=== PATIENT | female | born 1925 | race Caucasian/White ===

== ENCOUNTER 2017-07-02 21:29 | Inpatient (IN) | payer MEDICARE, OTHER ==
[~2017-07-02] VITALS: Ht 154.9 cm; Wt 96.2 kg
[~2017-07-02 21:29] MED LIST: ACET-53 PO; ACET1TAB12 PO; ALPR0.255 PO; APIX2.5T PO; CARV6.252 PO; ESOM40CA PO; FURO40TA5 PO; IBUP-1955 PO; LOSA50TA21 PO; MAGN400T30 PO; METO-357 PO; POTA10CA43 PO; SENN-92 PO; SIMV40TA5 PO; TRAM50TA2 PO
--- NOTE | 2017-07-02 21:30 | NUR ---
PT BIB RA WITH A C/O LEFT SIDED CP SINCE THIS AM. PT FELT NAUSEATED AND VOMITTED HEEL GOUGER. 20G IV LAC HEEL GOUGER. PT REC'D 1 SPRAY NITRO, 162MG ASA, AND 4MG ZOFRAN IVP IN THE FIELD. PT IS AA&O. PT IS MARSHALLESE SPEAKING AND C/O GLASER. EMS STATED THAT THE PT C/O GLASER IN THE FIELD. PT IS ON THE MONITOR AND CONTINUOUS PULSE OX.
[2017-07-02 21:44] LABS: BASOPHILS % (AUTO) 0.3 % (0.0-2.0); EOSINOPHILS % (AUTO) 0.1 % (0.0-6.0); HEMATOCRIT 40 % (33-45); HEMOGLOBIN 13.8 g/dL (11.5-14.8); LYMPHOCYTES # (AUTO) 0.7 /CMM (0.8-4.8); LYMPHOCYTES % (AUTO) 12.4 % (20.0-44.0); MEAN CORPUSCULAR HEMOGLOBIN 30 PG (26.0-33.0); MEAN CORPUSCULAR HGB CONC 34 g/dl (31.0-36.0); MEAN CORPUSCULAR VOLUME 87 fL (82-100); MONOCYTES # (AUTO) 0.5 /CMM (0.1-1.30); MONOCYTES % (AUTO) 8.6 % (2.0-12.0); NEUTROPHILS # (AUTO) 4.4 /CMM (1.8-8.9); NEUTROPHILS % (AUTO) 78.6 % (43.0-81.0); PLATELET COUNT (AUTO) 252 /CMM (150-450); RDW COEFFICIENT OF VARIATION 13.2 (11.5-15.0); RED BLOOD CELL COUNT(AUTO) 4.61 MIL/uL (4.0-5.2); WHITE BLOOD COUNT (AUTO) 5.6 K/uL (4.3-11.0)
--- NOTE | 2017-07-02 22:02 | NUR ---
PT LEFT FOR CT VIA RNEY
[2017-07-02 22:03] LABS: ALANINE AMINOTRANSFERASE 20 U/L (12-78); ALBUMIN 3.2 g/dL (3.4-5.0); ALKALINE PHOSPHATASE 74 U/L (46-116); ASPARTATE AMINOTRANSFERASE 24 U/L (15-37); BILIRUBIN,DIRECT 0.1 mg/dL (0.0-0.2); BILIRUBIN,TOTAL 0.6 mg/dL (0.2-1.0); CALCIUM, SERUM 8.7 mg/dL (8.5-10.1); CARBON DIOXIDE 25 mmol/L (21-32); CHLORIDE 97 mmol/L (98-107); CREATININE 1.3 mg/dL (0.6-1.3); GLUCOSE 134 mg/dL (74-106); POTASSIUM 4.9 mmol/L (3.5-5.1); SODIUM SERUM 131 mmol/L (136-145); TOTAL PROTEIN, SERUM 8.3 g/dL (6.4-8.2); UREA NITROGEN, BLOOD 17 mg/dL (7-18)
[2017-07-02 22:05] LABS: TROPONIN I < 0.017 ng/mL (0.00-0.056)
[2017-07-02 22:06] LABS: INR 1.09 (0.87-1.13); PROTHROMBIN TIME 11.3 SECS (9.5-12.7)
[2017-07-02] MEDS ORDERED: DEXAMETHASONE SOD PHOSPHATE 10 MG/ML VIAL IV ONE (22:30)
[2017-07-02] MEDS ORDERED: ONDANSETRON HCL/PF 4 MG/2 ML VIAL ONE (22:30)
[2017-07-02] MEDS ORDERED: diphenhydrAMINE HCL 50 MG/ML VIAL IV ONE (22:30)
[2017-07-02] MEDS ORDERED: ONDANSETRON HCL/PF 4 MG/2 ML VIAL IV ONE (22:30)
[2017-07-02] MEDS ORDERED: diphenhydrAMINE HCL 50 MG/ML VIAL ONE (22:32)
[2017-07-02] MEDS ORDERED: DEXAMETHASONE SOD PHOSPHATE 10 MG/ML VIAL ONE (22:32)
--- NOTE | 2017-07-02 23:03 | NUR ---
PT PLACED ON 3L O2 VIA NC. PT WAS SATURATING AT 89% ON RA. PT IS NOW SATURATING AT 92%. DR. FIGUEROA NOTIFIED.
--- NOTE | 2017-07-02 23:09 | NUR ---
[facility] PAGED, YARED LOPEZ GLOVE MACHINE OPERATOR
[2017-07-02 23:11] LABS: APPEARANCE,URINE SL CLOUDY (CLEAR); BILIRUBIN,URINE NEGATIVE (NEGATIVE); BLOOD, URINE TRACE-INTA Ery/uL (NEGATIVE); COLOR,URINE YELLOW (YELLOW); KETONES,URINE NEGATIVE (NEGATIVE); LEUKOCYTE ESTERASE ,URINE NEGATIVE (NEGATIVE); NITRITE, URINE POSITIVE (NEGATIVE); PROTEIN,URINE TRACE mg/dl (NEGATIVE); UGLUCOSE NEGATIVE (NEGATIVE); UROBILINOGEN,URINE 0.2 EU/dL (0.2)
--- NOTE | 2017-07-02 23:15 | NUR ---
PT'S FAMILY MEMBERS LEFT. PT'S SON, HERRERA, WOULD LIKE TO BE CALLED WITH UPDATES.
[2017-07-02 23:18] LABS: BACTERIA,URINE 4+ /HPF (None Seen); SQUAMOUS EPITHELIAL CELL,UR Few /HPF (None Seen)
--- NOTE | 2017-07-02 23:23 | NUR ---
PT ASSIGNED TO 324-1
[2017-07-02] MEDS ORDERED: CEFTRIAXONE 1GM BAG (ER ONLY) 50 ML IV ONE (23:26)
--- NOTE | 2017-07-02 23:29 | NUR ---
DR. LOPEZ, IS AT THE BEDSIDE WITH BRITATNY SILVERMAN FROM ICU FOR GERMAN TRANSLATION.
[2017-07-02] MEDS ORDERED: CEFTRIAXONE 1GM BAG (ER ONLY) 1 GM/50 ML PIGGYBACK IV ONE (23:30)
[2017-07-03] VITALS (8 sets, daily range): BP systolic 117–156; BP diastolic 54–85
[2017-07-03] MEDS ORDERED: FUROSEMIDE 20 MG/2 ML VIAL IV ONE ×2
--- NOTE | 2017-07-03 00:10 | NUR ---
RN OPEN NOTES RECEIVED PATIENT FROM ER VIA IGGY. A/O X3. NO SIGNS OF DISTRESS OR DISCOMFORT. BREATHING EVEN AND UNLABORED. ON 3LPM O2 VIA NC. IV ACCESS IN LAC WITH ROCEPHIN CURRENTLY INFUSING PATENT AND INTACT, NO SIGNS OF REDNESS OR INFILTRATION. ORIENTED PATIENT TO UNIT AND ROOM. ALL NEEDS ANTICIPATED. BED IN LOW LOCKED POSITION WITH SIDE RAILS X2. CALL LIGHT WITHIN REACH. WILL CONTINUE TO MONITOR.
[2017-07-03] MEDS ORDERED: HYDROCODONE/APAP 5/325MG 1 EACH TABLET PO PRN ×2 (00:15)
[2017-07-03] MEDS ORDERED: ONDANSETRON HCL/PF 4 MG/2 ML VIAL IVP PRN ×2 (00:15)
[2017-07-03] MEDS ORDERED: ACETAMINOPHEN 325 MG TABLET PO PRN ×2 (00:15)
[2017-07-03] MEDS ORDERED: Z GUARD REMEDY 2 OZ OINT TP PRN ×2 (00:15)
[2017-07-03] MEDS ORDERED: MAGNESIUM HYDROXIDE 30 ML UDC PO PRN ×2 (00:15)
[2017-07-03] MEDS ORDERED: MAG HYDROX/AL HYDROX/SIMETH 30 ML UDC PO PRN ×2 (00:15)
[2017-07-03] MEDS ORDERED: FUROSEMIDE 20 MG/2 ML VIAL ONE (01:20)
[2017-07-03] MEDS ORDERED: CEFTRIAXONE 1 G in IV D5W 50 ML IV SCH ×2 (01:30→23:00)
[2017-07-03] MEDS ORDERED: TRAMADOL HCL 50 MG TABLET PO PRN (01:30)
[2017-07-03 06:32] LABS: BASOPHILS % (AUTO) 0.3 % (0.0-2.0); HEMATOCRIT 39 % (33-45); HEMOGLOBIN 13.1 g/dL (11.5-14.8); LYMPHOCYTES # (AUTO) 0.5 /CMM (0.8-4.8); LYMPHOCYTES % (AUTO) 15.1 % (20.0-44.0); MEAN CORPUSCULAR HEMOGLOBIN 30 PG (26.0-33.0); MEAN CORPUSCULAR HGB CONC 34 g/dl (31.0-36.0); MEAN CORPUSCULAR VOLUME 89 fL (82-100); MONOCYTES # (AUTO) 0.1 /CMM (0.1-1.30); MONOCYTES % (AUTO) 1.8 % (2.0-12.0); NEUTROPHILS # (AUTO) 2.7 /CMM (1.8-8.9); NEUTROPHILS % (AUTO) 82.8 % (43.0-81.0); PLATELET COUNT (AUTO) 223 /CMM (150-450); RDW COEFFICIENT OF VARIATION 14.1 (11.5-15.0); WHITE BLOOD COUNT (AUTO) 3.2 K/uL (4.3-11.0)
[2017-07-03 06:39] LABS: CALCIUM, SERUM 8.7 mg/dL (8.5-10.1); CARBON DIOXIDE 24 mmol/L (21-32); CHLORIDE 98 mmol/L (98-107); CREATININE 1.3 mg/dL (0.6-1.3); GLUCOSE 172 mg/dL (74-106); MAGNESIUM 1.7 mg/dL (1.8-2.4); PHOSPHORUS 4.7 mg/dL (2.5-4.9); POTASSIUM 4.8 mmol/L (3.5-5.1); SODIUM SERUM 134 mmol/L (136-145); UREA NITROGEN, BLOOD 18 mg/dL (7-18)
[2017-07-03 06:47] LABS: TROPONIN I < 0.017 ng/mL (0.00-0.056)
--- NOTE | 2017-07-03 07:45 | NUR ---
RN CLOSING NOTES PATIENT AWAKE IN BED. A/O X3. NO SIGNS OF DISTRESS OR DISCOMFORT. BREATHING EVEN AND UNLABORED. ON 3LPM O2 VIA NC. IV ACCESS IN LAC, PATENT AND INTACT, NO SIGNS OF REDNESS OR INFILTRATION. ALL NEEDS MET. NO SIGNIFICANT CHANGES THROUGH THE NIGHT. BED IN LOW LOCKED POSITION WITH SIDE RAILS X2. CALL LIGHT WITHIN REACH. ENDORSED TO AM SHIFT FOR JESSICA.
--- NOTE | 2017-07-03 07:52 | NUR ---
CONTROL PANEL ASSEMBLER NOTES RECEIVED PATIENT IN BED, AWAKE. A/O X3, [place] SPEAKING, UNDERSTAND SOME [place]EL[place]. ON TELE MONITOR AFIB HR 61, ON OXYGEN AT 3L VIA NC, NO SOB. IVC IN LEFT AC G20 PATENT AND INTACT, FLUSHES WELL. APPEARS COMFORTABLE IN BED, CALL LIGHT WITHIN REACH. WILL CONT TO MONITOR.
[2017-07-03 08:29] LABS: CHOLESTEROL 199 mg/dL (<200); HDL CHOLESTEROL 55 mg/dL (40-60); LDL 138 mg/dL (0-99); THYROID STIMULATING HORMONE 0.563 uIU/mL (0.358-3.74); TRIGLYCERIDES 42 mg/dL (30-150)
[2017-07-03] MEDS ORDERED: REGADENOSON 0.4 MG/5 ML DISP.SYRIN IVP ONE (08:30)
[2017-07-03] MEDS: POTASSIUM CHLORIDE 10 MEQ TABLET.SA PO SCH (08:52)
[2017-07-03] MEDS: SENNOSIDES/DOCUSATE SODIUM 1 TAB TABLET PO SCH ×2 (08:52→17:05)
[2017-07-03] MEDS: PANTOPRAZOLE 40 MG TABLET.DR PO SCH (08:52)
[2017-07-03] MEDS: MAGNESIUM OXIDE 400 MG TABLET PO SCH (08:55)
[2017-07-03] MEDS: CARVEDILOL 6.25 MG TABLET PO SCH ×2 (08:55→17:06)
[2017-07-03] MEDS: FUROSEMIDE 40 MG TABLET PO SCH (08:56)
[2017-07-03] MEDS: LOSARTAN POTASSIUM 50 MG TABLET PO SCH (08:56)
[2017-07-03] MEDS: METOPROLOL SUCCINATE 50 MG TAB.SR.24H PO SCH (08:56)
[2017-07-03] MEDS ORDERED: APIXABAN 2.5 MG TABLET PO ONE (09:00)
[2017-07-03] MEDS: IBUPROFEN 600 MG TABLET PO SCH ×3 (09:00→17:05)
[2017-07-03] MEDS: ALPRAZOLAM 0.25 MG TABLET PO PRN ×2 (09:14→22:51)
--- NOTE | 2017-07-03 09:16 | NUR ---
PATIENT IN BED, APPEARS ANXIOUS. NO SOB, MAINTAIN HOB ELEVATED, ON SUPPLEMENTAL OXYGEN AT 2L VIA NC. GIVEN XANAX 0.25 PO PRN, WILL REASSESS.
--- NOTE | 2017-07-03 10:30 | NUR ---
PATIENT IN BED, AWAKE. APPEARS CALM AND RELAX, XANAX PO PRN EFFECTIVE.
--- NOTE | 2017-07-03 10:56 | NUR ---
LOW MAGNESIUM 1.7 PATIENT IS ON MAG-OXIDE 400MG PO DAILY. INFORMED ANIMAL PATHOLOGIST/AG, WITH NO NEW ORDERS AT THIS TIME.
--- NOTE | 2017-07-03 13:22 | NUR ---
PATIENT IS BACK FROM [place] MYOCARDIAL STRESS PROCEDURE. MAD COMFORTABLE IN BED, LUNCH IS SERVED.
[2017-07-03] MEDS: SIMVASTATIN 40 MG TABLET PO SCH (17:04)
[2017-07-03] MEDS: APIXABAN 5 MG TABLET PO SCH (17:06)
--- NOTE | 2017-07-03 18:45 | NUR ---
MS RN CLOSING NOTES PATIENT IN BED, A/OX3. BREATHING EVEN AND NON LABORED, ON SUPPLEMENTAL OXYGEN AT 3L VIA NC. ASSISTED TO THE BED SIDE COMMODE, HAD BOWEL MOVEMENT TODAY X2, KEPT CLEAN AND DRY. ELEVATE LEGS WITH PILLOWS. PLACE CALL LIGHT WITHIN REACH. CONT HOSPITALIZATION AND LABS IN AM PER [facility]/KIMBERLI. WILL ENDORSE TO APPRENTICE EMBALMER RN FOR JESSICA.
--- NOTE | 2017-07-04 05:29 | NUR ---
RN NOTES No significant change in condition.No c/o pain or discomfort, no c/o chest pain. Patient slept comfortably during shift. HOB kept elevated. O2 inhalation via nasal cannula kept in place. Due meds given as ordered, all needs attended. Will continue to monitor.
--- NOTE | 2017-07-04 07:30 | NUR ---
RN OPENING NOTES RECEIVED PATIENT IN BED RESTING. A/O X3, SPANISH SPEAKING. NO ACUTE DISTRESS, NO SOB NOTED. DENIES CHEST PAIN OR DISCOMFORT. IV SITE INTACT AND PATENT. KEPT PATIENT SAFE AND COMFORTABLE. BED IN LOW, LOCKED POSITION, SIDERAILS UPX2. CALL LIGHT IN REACH. WILL CONTINUE TO MONITOR ACCORDINGLY.
[2017-07-04 07:47] LABS: BASOPHILS % (AUTO) 0.3 % (0.0-2.0); HEMATOCRIT 40 % (33-45); HEMOGLOBIN 13.1 g/dL (11.5-14.8); LYMPHOCYTES # (AUTO) 0.9 /CMM (0.8-4.8); LYMPHOCYTES % (AUTO) 12.2 % (20.0-44.0); MEAN CORPUSCULAR HEMOGLOBIN 29 PG (26.0-33.0); MEAN CORPUSCULAR HGB CONC 33 g/dl (31.0-36.0); MEAN CORPUSCULAR VOLUME 89 fL (82-100); MONOCYTES # (AUTO) 0.4 /CMM (0.1-1.30); MONOCYTES % (AUTO) 5.9 % (2.0-12.0); NEUTROPHILS # (AUTO) 6.2 /CMM (1.8-8.9); NEUTROPHILS % (AUTO) 81.6 % (43.0-81.0); PLATELET COUNT (AUTO) 223 /CMM (150-450); RED BLOOD CELL COUNT(AUTO) 4.51 MIL/uL (4.0-5.2); WHITE BLOOD COUNT (AUTO) 7.6 K/uL (4.3-11.0)
[2017-07-04 08:00] VITALS: BP 108/58
[2017-07-04 08:12] LABS: CALCIUM, SERUM 8.6 mg/dL (8.5-10.1); CARBON DIOXIDE 27 mmol/L (21-32); CHLORIDE 103 mmol/L (98-107); CREATININE 1.6 mg/dL (0.6-1.3); GLUCOSE 119 mg/dL (74-106); POTASSIUM 4.3 mmol/L (3.5-5.1); SODIUM SERUM 138 mmol/L (136-145); UREA NITROGEN, BLOOD 37 mg/dL (7-18)
[2017-07-04] MEDS: FUROSEMIDE 40 MG TABLET PO SCH (08:44)
[2017-07-04] MEDS: IBUPROFEN 600 MG TABLET PO SCH (08:44)
[2017-07-04] MEDS: MAGNESIUM OXIDE 400 MG TABLET PO SCH (08:44)
[2017-07-04] MEDS: SENNOSIDES/DOCUSATE SODIUM 1 TAB TABLET PO SCH ×2 (08:45→17:46)
[2017-07-04] MEDS: PANTOPRAZOLE 40 MG TABLET.DR PO SCH (08:49)
[2017-07-04] MEDS: APIXABAN 5 MG TABLET PO SCH ×2 (08:49→17:48)
[2017-07-04] MEDS: POTASSIUM CHLORIDE 10 MEQ TABLET.SA PO SCH (08:51)
[2017-07-04] MEDS: LOSARTAN POTASSIUM 50 MG TABLET PO SCH (08:56)
[2017-07-04] MEDS: CARVEDILOL 6.25 MG TABLET PO SCH ×2 (08:56→17:46)
[2017-07-04] MEDS: METOPROLOL SUCCINATE 50 MG TAB.SR.24H PO SCH (08:57)
[2017-07-04] MEDS ORDERED: LEVO500T75 PO (11:19)
--- NOTE | 2017-07-04 14:28 | NUR ---
RN NOTES RECEIVED REPORT FROM LAB, PATIENT POSITIVE MRSA NARES. WILL NOTIFY
[2017-07-04 16:00] VITALS: BP 149/86
[2017-07-04] MEDS: SIMVASTATIN 40 MG TABLET PO SCH (17:45)
[2017-07-04 17:46] VITALS: BP 149/86
--- NOTE | 2017-07-04 18:30 | NUR ---
ELECTRICAL ASSEMBLER NOTES DISCHARGE PATIENT IN STABLE CONDITION ACCOMPANIED BY FAMILY AND JEWELL SOUZA.. DISCHARGE INSTRUCTIONS GIVEN TO PATIENT AND FAMILY, VERBALIZED UNDERSTANDING, DISCHARGE PAPERWORK AND ALL BELONGINGS GIVEN BACK TO FAMILY. BELONGING FORM SIGNED. D/C IV, APPLIED PRESSURE, NO BLEEDING, NO COMPLICATIONS. REMOVED ARM BAND.
== END 2017-07-04 18:48 | disposition home or self-care (01) | DRG 205 ==
LOC: ER 21:31 → TELE 07-03 00:43 → MED 07-03 10:04
PROVIDERS: ADMIT Nurse Practitioner Acute Care; ATTEND Nurse Practitioner Acute Care
DX: M94.0 Chondrocostal junction syndrome [Tietze] (principal); J96.01 Acute respiratory failure with hypoxia; N17.0 Acute kidney failure with tubular necrosis; I50.33 Acute on chronic diastolic (congestive) heart failure; E87.1 Hypo-osmolality and hyponatremia; D68.59 Other primary thrombophilia; E83.42 Hypomagnesemia; Z68.41 Body mass index [BMI] 40.0-44.9, adult; N39.0 Urinary tract infection, site not specified; I24.9 Acute ischemic heart disease, unspecified; I11.0 Hypertensive heart disease with heart failure; E78.5 Hyperlipidemia, unspecified; F41.9 Anxiety disorder, unspecified; I25.10 Atherosclerotic heart disease of native coronary artery without angina pectoris; I25.2 Old myocardial infarction; Z96.659 Presence of unspecified artificial knee joint; Z95.5 Presence of coronary angioplasty implant and graft; Z87.891 Personal history of nicotine dependence; Z86.73 Personal history of transient ischemic attack (TIA), and cerebral infarction without residual deficits; Z86.718 Personal history of other venous thrombosis and embolism; Z79.899 Other long term (current) drug therapy; I48.2 Chronic atrial fibrillation; E66.9 Obesity, unspecified; M19.90 Unspecified osteoarthritis, unspecified site; K21.9 Gastro-esophageal reflux disease without esophagitis
CPT/HCPCS: 36415; 70450-TC; 71010-TC; 80048-TC; 80061-TC; 80076-TC; 81000-TC; 83735-TC; 83880; 84100-TC; 84443-TC; 84484-TC; 85025-TC; 85730-TC; 87081-TC; 87086-TC; 87186-TC; 93307-TC; 93970-TC; A9502; J0696; J1100; J1200; J1940; J2405; J2785; J7050; J7060